=== PATIENT | male | born 1975 | race Caucasian/White ===

== ENCOUNTER → 2017-10-02 | Outpatient (CLI) | payer OTHER | END | disposition home or self-care (01) | LOC: LABWHC1 13:51 | PROVIDERS: ATTEND Psychiatry & Neurology Neurology | DX: G35 Multiple sclerosis (principal) | CPT/HCPCS: 36415; 82565 ==

== ENCOUNTER → 2017-10-03 | Outpatient (CLI) | payer OTHER ==
--- NOTE | 2017-10-03 12:38 | MR ---
EXAMINATION TYPE: MR brain/cspine wo/w DATE OF EXAM: 10/03/2017 COMPARISON: Prior MR brain 04/22/2015 HISTORY: MS TECHNIQUE: Multiplanar, multisequence images of the brain and brainstem, cervical spine is performed without and with IV contrast, utilizing 11.5 mL intravenous Gadavist . FINDINGS: MRI BRAIN: Diffusion weighted images demonstrate no evidence of a recent infarct or other diffusion a bnormality. There is no extra-axial fluid collection. Multiple scattered and confluent hyperintensit ies are again noted within the periventricular, pericallosal, sub and juxtacortical white matter as o n prior exam. There are, however, at least 3-5 new or mildly enlarged lesions present as compared to prior exam. Sagittal image 17 in the pericallosal white matter, axial image 21 has increased in size now measuring 5 to 6 mm in greatest dimension on sagittal image 17. On the right on axial image 21, w marquise matter lesion measures 6.4 mm x 7.6 mm on sagittal image 25, new from prior or increased in cons picuity. Juxtacortical lesion on sagittal image 29, axial image 24 not seen definitively on prior may be increased in conspicuity. The ventricular system and cisternal spaces are stable in size and appearance. The brain volume is s table. Midline structures demonstrate normal morphology. The craniocervical junction appears within normal limits. Post contrast images demonstrate no abnormal enhancement. The dural venous sinuses appear pa tent. The visualized sinuses are clear and the globes are intact. Cervical spine: Posterior disc bulge at C3-4 causes mild anterior mass effect, endplate disc complex extends laterally to cause foraminal encroachment bilaterally. No significant central stenosis. Lateral extension of endplate disc complex at C4-5 causes bilateral foraminal encroachment. Small shahbaz tral posterior disc bulge causes slight anterior mass effect on the thecal sac. No other significant spinal stenosis or foraminal encroachment. Cervical cord signal is maintained. N o abnormal enhancement following contrast administration. Cervical medullary junction is normal. IMPRESSION: Mild increase in plaque burden within the brain. Cervical spine shows mild degenerative d isc change.
== END | disposition home or self-care (01) ==
LOC: RADMRIMAIN 09:41
PROVIDERS: ATTEND Psychiatry & Neurology Neurology
DX: M47.812 Spondylosis without myelopathy or radiculopathy, cervical region (principal); J98.4 Other disorders of lung; G35 Multiple sclerosis
CPT/HCPCS: 70553; 72156; A9581

== ENCOUNTER → 2018-09-20 | Outpatient (CLI) | payer OTHER, MEDICAID ==
--- NOTE | 2018-09-21 18:53 | MR ---
EXAMINATION TYPE: MR brain/cspine wo/w DATE OF EXAM: 09/20/2018 COMPARISON: 10/03/2017 HISTORY: 42-year-old male Relapsing MS, right leg numbness/weakness Technique: Multiplanar, multisequence images of the brain were obtained before and after administrati on of 12 mL intravenous Gadavist gadolinium contrast. Diffusion-weighted imaging is performed. Demye linating disease protocol was utilized with the addition of T2 FLAIR sequence. Subsequent multiplanar, multisequence imaging of the cervical spine before and after IV contrast admi nistration. FINDINGS: BRAIN: T2 Lesions Present : Yes Approximate Number of Lesions: Proximately 50 in the cerebral hemisphere Locations Identified : Pericallosal (with the characteristic appearance of Carty's fingers), Perive ntricular, Juxtacortical, cortical in the right parietal lobe, and also within the right medullary py ramid. Size of Reference Lesion(s): 1. 4 mm right medullary pyramid axial image 8 versus 3 mm, previously. 2 3 mm anterior frontal periventricular white matter axial image 24 versus 5 mm, previously. 3. 1.0 cm left parietal deep white matter axial image 22, unchanged. 4. The vast majority of the lesions are stable. Enhancing Lesion(s) Present: No T1 Hypointense Lesion(s) Present: Yes Change from Prior: Very minimal variation from the prior exam as indicated by reference lesions 1 and 2 above. Small foci of T2 shine through on the DWI sequence. No evidence for acute infarction, hemorrhage, mas s, mass effect, midline shift, herniation, effacement of basal cisterns, or extra-axial fluid collect ion. The ventricles and sulci are age-appropriate. Major intracranial flow voids are intact. Midline structures demonstrate normal morphology. The craniocervical junction is normal. Post contrast images demonstrate no evidence of pathologic enhancement. Dural venous sinuses are pat ent. Mild mucosal thickening within the ethmoid air cells. Globes are intact. CERVICAL SPINE: No craniocervical junction abnormality, predental space widening, or prevertebral soft tissue swellin g. Alignment is maintained. No suspicious bone marrow replacement. Mild intervertebral disc desiccation throughout. Redemonstrated discussed by complex at C3-C4 impress ing on the ventral thecal sac but not causing significant spinal canal stenosis. There is scattered facet and uncovertebral joint arthropathy throughout. At C3-C4, this contributes to [id number] bilateral neural foraminal stenosis. Otherwise, at C4-C5 and below, facet arthropathy contributes to minimal to mild neural foraminal narr owing. There is excessive motion artifact on the sagittal T2 and PD sequence limiting accurate assessment fo r the T2-weighted cord signal abnormality. No definite cord signal lesion is identified. COMBINED IMPRESSION: BRAIN: 1. Moderate scattered burden of T2 bright white matter change is overall stable. One tiny 4 mm lesion in the right medullary pyramid may be slightly larger compared to 3 mm, previously. Another small 3 mm lesion in the right frontal periventricular white matter may be slightly smaller from 5 mm, previo usly. Again, the remaining lesions appear stable. 2. No abnormal enhancing plaques. CERVICAL SPINE: 1. Redemonstrated mild degenerative disc disease and scattered facet arthropathy, more moderate at C3 -C4 with there are mild to moderate bilateral neural foraminal stenoses. 2. Excessive motion artifacts limiting accurate assessment for T2-weighted cord signal abnormality. N o definite demyelinating plaques are seen in the cervical spinal cord.
== END ==
LOC: RADMRIMAIN 08:57
PROVIDERS: ATTEND Psychiatry & Neurology Neurology
DX: R90.89 Other abnormal findings on diagnostic imaging of central nervous system (principal); M48.02 Spinal stenosis, cervical region; M50.31 Other cervical disc degeneration, high cervical region; M46.92 Unspecified inflammatory spondylopathy, cervical region; G35 Multiple sclerosis
CPT/HCPCS: 70553; 72156; A9585

== ENCOUNTER → 2018-09-22 | Outpatient (CLI) | payer OTHER, MEDICAID ==
--- NOTE | 2018-09-22 23:18 | MR ---
EXAMINATION TYPE: MR thoracic spine wo/w con DATE OF EXAM: 09/22/2018 COMPARISON: NONE HISTORY: new leg weakness, mid back pain, MS TECHNIQUE: Multiplanar, multisequence imaging of thoracic spine is performed without and with IV cont rast, patient is injected with 12 cc of gadavist. Demyelinating disease protocol. FINDINGS: Spinal cord shows normal course, caliber, and signal as it courses the thoracic spine. Smitha tebral body heights are satisfactory. Disc space heights are fairly well maintained. No large product safety lead ior disc herniations are seen on sagittal images. Posterior disc herniation C3-C4 level effaces the a nterior thecal sac on sagittal T2 comment sequence is redemonstrated on MRI cervical spine 2 days ear lier. Spleen appears prominent on coronal images correlate clinically. No suspicious enhancement is s een. There is mild to moderate multilevel anterior spurring in the mid to lower thoracic spine with i ncreased thoracic curvature noted centered lower thoracic spine. Bone marrow signal intensity is pres erved. Review of the axial images shows no significant spinal canal stenosis or neural foraminal narrowing a t any thoracic level. Some artifact aggravation lower thoracic spine images is noted. Visualized por tion of the thorax and upper abdomen show no suspicious abnormality. IMPRESSION: Exaggerated thoracic kyphosis lower thoracic spine with mild to moderate anterior spurrin g mid to lower thoracic spine. No suspicious focal disc herniations. Possible splenomegaly, correlate clinically. No demyelinating disease involvement or enhancement in the thoracic spinal cord identifi ed.
== END | disposition home or self-care (01) ==
LOC: RADMRIMAIN 14:52
PROVIDERS: ATTEND Psychiatry & Neurology Neurology
DX: M40.294 Other kyphosis, thoracic region (principal); G35 Multiple sclerosis
CPT/HCPCS: 72157; A9585

== ENCOUNTER → 2018-12-24 | Outpatient (CLI) | payer OTHER, MEDICAID ==
--- NOTE | 2018-12-24 13:40 | US ---
EXAMINATION TYPE: US thyroid st tissue head/neck DATE OF EXAM: 12/24/2018 COMPARISON: NONE CLINICAL HISTORY: R22.0 Localized Mass Swelling. Lump back of head for 3-5 days Scanned within patient's area of concern. Unable to visualize any abnormality by ultrasound at this t bernice IMPRESSION: Ultrasound images saved show no worrisome mass or fluid collection.
[2018-12-24 14:52] LABS: Basophils % (A) 0 %; Eosinophils # (A) 0.1 k/uL (0-0.7); Eosinophils % (A) 3 %; HCT 42.8 % (39.0-53.0); HGB 14.2 gm/dL (13.0-17.5); Lymphocytes # (A) 1.3 k/uL (1.0-4.8); Lymphocytes % (A) 33 %; MCH 28.8 pg (25.0-35.0); MCHC 33.1 g/dL (31.0-37.0); Mean Platelet Volume 6.8; Monocytes # (A) 0.3 k/uL (0-1.0); Monocytes % (A) 7 %; Neutrophils # (A) 2.2 k/uL (1.3-7.7); Neutrophils % (A) 55 %; Platelet Count 197 k/uL (150-450); RBC 4.92 m/uL (4.30-5.90); RDW 13.7 % (11.5-15.5); WBC 4.1 k/uL (3.8-10.6)
[2018-12-24 15:01] LABS: ALT 40 U/L (21-72); AST 32 U/L (17-59); African American GFR (CKD) >90 (>60 ml/min/1.73 sqM); Albumin 4.7 g/dL (3.5-5.0); Alkaline Phosphatase 75 U/L (38-126); Anion Gap 8 mmol/L; Blood Urea Nitrogen 15 mg/dL (9-20); Calcium 9.5 mg/dL (8.4-10.2); Carbon Dioxide 29 mmol/L (22-30); Chloride 107 mmol/L (98-107); Glucose 89 mg/dL (74-99); Potassium 4.4 mmol/L (3.5-5.1); Sodium 144 mmol/L (137-145); Total Bilirubin 0.4 mg/dL (0.2-1.3); Total Protein 7.4 g/dL (6.3-8.2)
== END | disposition home or self-care (01) ==
LOC: RADUSWWP 13:02
PROVIDERS: ATTEND Family Medicine
DX: R22.0 Localized swelling, mass and lump, head (principal); K22.8 Other specified diseases of esophagus; Z88.8 Allergy status to other drugs, medicaments and biological substances
CPT/HCPCS: 76536; 80053; 85025

== ENCOUNTER → 2019-06-17 | Outpatient (CLI) | payer OTHER, MEDICAID ==
[2019-06-17 12:50] LABS: Basophils % (A) 0 %; Eosinophils # (A) 0.2 k/uL (0-0.7); Eosinophils % (A) 3 %; HCT 43.1 % (39.0-53.0); HGB 14.6 gm/dL (13.0-17.5); Lymphocytes # (A) 1.6 k/uL (1.0-4.8); Lymphocytes % (A) 31 %; MCH 29.1 pg (25.0-35.0); MCHC 33.8 g/dL (31.0-37.0); MCV 86.2 fL (80.0-100.0); Mean Platelet Volume 7.5; Monocytes # (A) 0.3 k/uL (0-1.0); Monocytes % (A) 6 %; Neutrophils # (A) 2.9 k/uL (1.3-7.7); Neutrophils % (A) 57 %; Platelet Count 222 k/uL (150-450); RDW 13.4 % (11.5-15.5); WBC 5.1 k/uL (3.8-10.6)
[2019-06-17 19:06] LABS: African American GFR (CKD) 104.9 (60.0-200.0); Anion Gap 8.9 mmol/L (4.00-12.00); Calcium 9.5 mg/dL (8.7-10.3); Carbon Dioxide 26.1 mmol/L (21.6-31.8); Chol/HDL Ratio 7.69; Non-African American GFR(CKD) 90.5 (60.0-200.0); Potassium 4.2 mmol/L (3.5-5.5)
== END | disposition home or self-care (01) ==
LOC: LABWHC1 12:21
PROVIDERS: ATTEND Family Medicine
DX: Z00.00 Encounter for general adult medical examination without abnormal findings (principal); I10 Essential (primary) hypertension; G35 Multiple sclerosis
CPT/HCPCS: 36415; 80048; 80061; 83721; 84443; 84450; 84460; 85025

== ENCOUNTER 2020-09-16 01:32 | Emergency (ER) | payer OTHER ==
[2020-09-16 02:04] VITALS: TEMP 97.6
--- NOTE | 2020-09-16 04:24 | ED ---
Anxiety HPI - General Chief Complaint: Anxiety Stated Complaint: Panic Attack Time Seen by Provider: 09/16/20 03:02 Source: patient Mode of arrival: ambulatory - History of Present Illness Initial Comments: This patient is a 44-year-old man presenting because he is having a lot of anxiety. Things started tonight after he was trying to have bowel movement and was not able to. He states that he was having some hard stool. Patient also felt like he was not able to urinate. He states that now he is having a hard time calming down. There is some abdominal pressure but he is denying pain. No chest pain, no dyspnea. MD Complaint: anxiety -: hour(s) Symptoms: other Place: home Severity: moderate Quality: constant Improves With: nothing Worsens With: nothing Associated symptoms: other (See HPI) - Related Data Home Medications: Home Medications Medication Instructions Recorded Confirmed Fish Oil/Dha/Epa [Fish Oil 1,200 1 each PO DAILY 11/17/13 04/21/15 mg Fish Oil] Multivitamins, Thera [Multivitamin 1 each PO DAILY 11/17/13 04/21/15 (formulary)] Sertraline [Zoloft] 100 mg PO DAILY 11/17/13 04/21/15 diphenhydrAMINE [Benadryl] 25 mg PO DAILY PRN 11/17/13 04/21/15 lisinopriL 40 mg PO DAILY 11/17/13 04/21/15 Dm/PE/Acetaminophen/Doxylamine 1 each PO QID PRN 04/21/15 04/21/15 [Izabella-Fithian Plus Day-Night Cp] Meclizine [Antivert] 25 mg PO BID 04/21/15 04/21/15 Sambucol 1 tab PO BID PRN 04/21/15 04/21/15 Previous Rx's Medication Instructions Recorded Butalb/APAP/Caff 50-325-40Mg 1 each PO Q4HR PRN #180 tab 04/26/15 [Fioricet 50-325-40] Omeprazole [PriLOSEC] 20 mg PO AC-BID #60 capsule. 04/26/15 Ondansetron [Zofran] 4 mg PO Q12HR PRN #60 tab 04/26/15 Sildenafil Citrate [Viagra] 100 mg PO ONCE #12 tab 04/26/15 predniSONE 10 mg PO DIRECTED #147 tab 04/26/15 Ibuprofen [Motrin] 600 mg PO Q6HR PRN #20 tab 03/08/16 traMADol HCl [Ultram] 50 mg PO Q6H PRN #20 tab 03/08/16 Allergies/Adverse Reactions: Allergies Allergy/AdvReac Type Severity Reaction Status Date / Time benzocaine Allergy Unknown Swelling Verified 09/16/20 01:59 [From Cepacol Sore Throat] cetylpyridinium chloride Allergy Unknown Swelling Verified 09/16/20 01:59 [From Cepacol Sore Throat] menthol Allergy Unknown Swelling Verified 09/16/20 01:59 [From Cepacol Sore Throat] Review of Systems ROS Statement: Those systems with pertinent positive or pertinent negative responses have been documented in the HPI. ROS Other: All systems not noted in ROS Statement are negative. Constitutional: Denies: fever, chills, weakness Eyes: Denies: vision change Respiratory: Denies: cough, dyspnea Cardiovascular: Denies: chest pain, palpitations Gastrointestinal: Reports: constipation. Denies: abdominal pain, nausea, vomiting, diarrhea Genitourinary: Reports: as per HPI, urgency. Denies: dysuria, hematuria, testicular pain, testicular mass Musculoskeletal: Denies: back pain Skin: Denies: rash Neurological: Denies: headache, weakness, numbness Past Medical History Past Medical History: Hyperlipidemia, Hypertension, Neurologic Disorder Additional Past Medical History / Comment(s): MULTIPLE SCLEROSIS, OCULAR NEURITIS, History of Any Multi-Drug Resistant Organisms: None Reported Past Surgical History: No Surgical Hx Reported Additional Past Surgical History / Comment(s): ANESTHESIA WITH TEETH EXTRACTION, hernia repair 2012, Past Anesthesia/Blood Transfusion Reactions: No Reported Reaction, Motion Sickness Past Psychological History: Anxiety, Depression Smoking Status: Current some day smoker Past Alcohol Use History: Occasional Past Drug Use History: Marijuana - Past Family History Mother Family Medical History: Diabetes Mellitus, Hypertension Father Family Medical History: Hyperlipidemia Sister(s) Additional Family Medical History / Comment(s): MS General Exam Limitations: no limitations General appearance: alert, in no apparent distress Head exam: Present: atraumatic, normocephalic Eye exam: Present: normal appearance. Absent: scleral icterus, conjunctival injection Respiratory exam: Present: normal lung sounds bilaterally. Absent: respiratory distress, wheezes, rales, rhonchi, stridor Cardiovascular Exam: Present: regular rate, normal rhythm, normal heart sounds. Absent: systolic murmur, diastolic murmur, rubs, gallop GI/Abdominal exam: Present: soft, tenderness (Suprapubic), guarding (Suprapu bic). Absent: distended, rebound, rigid, mass, pulsatile mass, hernia Extremities exam: Present: normal inspection, normal capillary refill. Absent: pedal edema, calf tenderness Back exam: Present: normal inspection. Absent: CVA tenderness (R), CVA tenderness (L) Neurological exam: Present: alert Skin exam: Present: warm, dry, intact, normal color. Absent: rash Course Vital Signs 09/16/20 09/16/20 09/16/20 02:00 03:19 05:21 Temperature 97.6 F Pulse Rate 125 H 116 H 79 Respiratory 18 26 H 19 Rate Blood Pressure 141/80 161/110 149/93 O2 Sat by Pulse 98 98 98 Oximetry Medical Decision Making - Medical Decision Making Patient's 44-year-old man who had been having constipation and then hard time passing urine. Also feeling very anxious. On exam there is some guarding over the suprapubic area and bladder scan does show large amount urine. The patient's symptoms resolved after straight cath to drain his bladder. At this point it appears that patient's hard stool probably pressing on bladder neck. Discussed that should he have further episodes of this or any difficulty initiating voiding we'll need to see him again. Also discussed urology follow- up should there be issues with bladder. No history of trauma or back pain. Discussed appropriate further care and follow-up, as well as return parameters Disposition Clinical Impression: Urinary retention Disposition: HOME SELF-CARE Instructions (If sedation given, give patient instructions): Urinary Retention in Men (ED) Is patient prescribed a controlled substance at d/c from ED?: No Referrals: Konrad Clifton Jr, [Primary Care Provider] - 1-2 days
[2020-09-16 05:22] VITALS: BP 149/93; PULSE 79; RESP 19
== END 2020-09-16 05:32 | disposition home or self-care (01) ==
LOC: EC 01:32
DX: R33.9 Retention of urine, unspecified (principal); I10 Essential (primary) hypertension; E78.5 Hyperlipidemia, unspecified; F32.9 Major depressive disorder, single episode, unspecified; F41.9 Anxiety disorder, unspecified; F17.200 Nicotine dependence, unspecified, uncomplicated
CPT/HCPCS: 99283

== ENCOUNTER → 2020-11-02 | Outpatient (CLI) | payer OTHER ==
--- NOTE | 2020-11-02 16:24 | XR ---
EXAM TYPE: LUMBAR SPINE X RAY SERIES COMPARISON: NONE HISTORY: Pain TECHNIQUE: 4 views are submitted. FINDINGS: Alignment is anatomic. The pedicles are intact. The transverse processes are intact. There is grad e 1 anterolisthesis L5 on S1 with severe degenerative disc disease and facet arthropathy. Moderate de generative disc disease L4-L5. There is diffuse osteopenia. Chronic appearing anterior wedge deformit y thoracolumbar junction with multilevel mild to moderate degenerative change and facet arthropathy. IMPRESSION: 1. Multilevel degenerative disc disease most marked at L5-S1 with grade 1 anterolisthesis. 2. Multilevel facet arthropathy. 3. Chronic appearing wedge deformities at the thoracolumbar junction.
--- NOTE | 2020-11-02 16:26 | XR ---
EXAMINATION TYPE: XR thoracic spine complete DATE OF EXAM: 11/02/2020 COMPARISON: 05/17/2017 HISTORY: Pain TECHNIQUE: 3 views submitted FINDINGS: multilevel degenerative disc disease with severe changes involving the lower thoracic spine . There are multiple wedge deformity seen which are similar in appearance to the prior exam suggestiv e of chronic compression IMPRESSION: Multilevel degenerative disc disease with chronic appearing compression deformities in th e lower thoracic spine. Consider MRI follow-up.
== END | disposition home or self-care (01) ==
LOC: RADXRMAIN 15:39
PROVIDERS: ATTEND Emergency Medicine
DX: M51.37 Other intervertebral disc degeneration, lumbosacral region (principal); M47.16 Other spondylosis with myelopathy, lumbar region; M47.816 Spondylosis without myelopathy or radiculopathy, lumbar region; M51.34 Other intervertebral disc degeneration, thoracic region; M43.8X6 Other specified deforming dorsopathies, lumbar region; M43.8X4 Other specified deforming dorsopathies, thoracic region
CPT/HCPCS: 72072; 72100

== ENCOUNTER 2022-02-19 05:39 | Emergency (ER) | payer OTHER ==
[2022-02-19] MEDS ORDERED: SODIUM CHLORIDE 0.9% 1,000 ML IV STA (05:40)
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
[2022-02-19 06:06] LABS: Basophils % (A) 0 %; Eosinophils # (A) 0.2 k/uL (0-0.7); Eosinophils % (A) 6 %; HCT 38.3 % (39.0-53.0); Lymphocytes # (A) 0.6 k/uL (1.0-4.8); Lymphocytes % (A) 16 %; MCH 30.7 pg (25.0-35.0); MCV 90.4 fL (80.0-100.0); Mean Platelet Volume 7.7; Monocytes # (A) 0.3 k/uL (0-1.0); Monocytes % (A) 9 %; Neutrophils # (A) 2.4 k/uL (1.3-7.7); Neutrophils % (A) 66 %; Platelet Count 173 k/uL (150-450); RBC 4.24 m/uL (4.30-5.90); RDW 14.1 % (11.5-15.5); WBC 3.7 k/uL (3.8-10.6)
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
[2022-02-19 06:17] LABS: Partial Thromboplastin Time 23.6 sec (22.0-30.0); Prothrombin Time 10.5 sec (9.0-12.0)
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
[2022-02-19 06:33] LABS: ALT 30 U/L (4-49); AST 28 U/L (17-59); African American GFR (CKD) >90 (>60 ml/min/1.73 sqM); Albumin 3.8 g/dL (3.5-5.0); Alcohol <10 mg/dL; Alkaline Phosphatase 75 U/L (38-126); Anion Gap 8 mmol/L; Blood Urea Nitrogen 15 mg/dL (9-20); Calcium 8.6 mg/dL (8.4-10.2); Carbon Dioxide 23 mmol/L (22-30); Chloride 111 mmol/L (98-107); Glucose 102 mg/dL (74-99); Non-African American GFR(CKD) >90 (>60 ml/min/1.73 sqM); Potassium 3.5 mmol/L (3.5-5.1); Sodium 142 mmol/L (137-145); Total Bilirubin 0.4 mg/dL (0.2-1.3)
--- NOTE | 2022-02-19 06:33 | XR ---
EXAMINATION TYPE: XR knee limited RT DATE OF EXAM: 02/19/2022 COMPARISON: NONE HISTORY: Pain TECHNIQUE: 2 view FINDINGS: There is no sign of fracture nor dislocation. Joint spaces are normal. No sign of joint eff usion. IMPRESSION: Normal right knee exam
--- NOTE | 2022-02-19 06:34 | XR ---
EXAMINATION TYPE: XR ankle limited RT DATE OF EXAM: 02/19/2022 COMPARISON: NONE HISTORY: Pain TECHNIQUE: 2 views FINDINGS: Ankle mortise is anatomic. No fracture nor dislocation. Joint spaces are normal. IMPRESSION: Negative right ankle exam.
--- NOTE | 2022-02-19 06:35 | XR ---
EXAMINATION TYPE: XR pelvis AP view DATE OF EXAM: 02/19/2022 COMPARISON: NONE HISTORY: Pain TECHNIQUE: Single view FINDINGS: The pelvic ring is intact. Proximal femurs and hip joints are intact. Sacroiliac joints are intact IMPRESSION: Negative exam. No fracture.
--- NOTE | 2022-02-19 06:36 | XR ---
EXAMINATION TYPE: XR chest 1V portable DATE OF EXAM: 02/19/2022 COMPARISON: 03/08/2016 HISTORY: Chest pain TECHNIQUE: FINDINGS: Heart appears enlarged. No heart failure seen. Lungs are clear of infiltrate. No pleural ef fusion. Bony thorax appears intact. IMPRESSION: Mild cardiomegaly. No acute lung disease. No adverse change.
[2022-02-19] MEDS ORDERED: traMADol 50 MG STARTER PACK 3 TAB BTL PO STA (06:57)
== END 2022-02-19 07:09 | disposition home or self-care (01) ==
LOC: EC 05:39
DX: S80.01XA Contusion of right knee, initial encounter (principal); E78.5 Hyperlipidemia, unspecified; I10 Essential (primary) hypertension; F17.200 Nicotine dependence, unspecified, uncomplicated; Z88.8 Allergy status to other drugs, medicaments and biological substances; Z88.6 Allergy status to analgesic agent; Z88.3 Allergy status to other anti-infective agents; V89.2XXA Person injured in unspecified motor-vehicle accident, traffic, initial encounter
CPT/HCPCS: 93005; 86900; 86901; 80053; 83605; 84484; 85025; 85610; 85730; 86850; 80320; 72170; 73560; 73600; 71045; 72125; 70450; 71260; 74177; 99284; 96360; Q9967; 36415

== ENCOUNTER → 2023-03-04 | Outpatient (CLI) | payer OTHER ==
[2023-03-04 21:29] LABS: BUN/Creat Ratio 14.44 Ratio (12.00-20.00); Chloride 109 mmol/L (96-109); Glucose 103 mg/dL (70-110); Potassium 3.7 mmol/L (3.5-5.5); Sodium 142 mmol/L (135-145)
[2023-03-04 21:30] LABS: ALT 24 U/L (10-49); AST 21 U/L (14-35); Albumin 4.3 d/dL (3.8-4.9); Albumin/Globulin Ratio 2.15 Ratio (1.60-3.17); Alkaline Phosphatase 91 U/L (41-126); Calcium 9.2 mg/dL (8.7-10.3); Carbon Dioxide 23.9 mmol/L (21.6-31.8); Total Bilirubin <0.2 mg/dL (0.3-1.2); Total Protein 6.3 d/dL (6.2-8.2)
[2023-03-04 22:29] LABS: Basophils # (A) 0.01 X 10*3/uL (0.00-0.10); Basophils % (A) 0.2 %; Eosinophils # (A) 0.31 X 10*3/uL (0.04-0.35); Eosinophils % (A) 7.5 %; HCT 38.7 % (39.6-50.0); HGB 12.7 d/dL (13.0-17.0); Lymphocytes # (A) 0.92 X 10*3/uL (0.90-5.00); Lymphocytes % (A) 22.4 %; MCH 29.5 pg (27.0-32.0); MCHC 32.8 d/dL (32.0-37.0); Mean Platelet Volume 10.6 FL (9.5-12.2); Monocytes # (A) 0.44 X 10*3/uL (0.20-1.00); Monocytes % (A) 10.7 %; NRBC Per 100 WBC 0 X 10*3/uL (0.00-0.01); Neutrophils # (A) 2.42 X 10*3/uL (1.80-7.70); Platelet Count 186 X 10*3/uL (140-440); RDW 13.3 % (11.5-14.5); WBC 4.11 X 10*3/uL (4.50-10.00)
== END | disposition home or self-care (01) ==
LOC: LABWHC1 11:21
PROVIDERS: ATTEND Internal Medicine
DX: Z22.7 Latent tuberculosis (principal)
CPT/HCPCS: 36415; 80053; 85025

== ENCOUNTER → 2023-11-05 | Outpatient (CLI) | payer OTHER ==
[2023-11-05 14:18] VITALS: BP 135/87; PULSE 72; RESP 16; TEMP 98
--- NOTE | 2023-11-05 15:00 | P.SLEEP ---
History of Present Illness H&P Date: 11/05/23 This is a 48-year-old who was referred to me for issues related to sleep quality and insomnia. 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 He states that he is functional and is able to complete his job without having any difficulties with his level of alertness. He has multiple medical problems and comorbidities. Is known to have multiple sclerosis that was diagnosed back in 2014 and the patient has history of optic neuritis. He has been treated so the neurologist in [facility]. At the same time, the patient has chronic allergic rhinitis and migraines along with history of depression, hypertension hyperlipidemia and acid reflux. He suffers from chronic fatigue. His MS has been adequately treated for now the patient seems to be in remission. He complains of chronic urinary retention and numbness and weakness in his left lower extremity, a manifestation of multiple sclerosis. He has had issues with vision in the past related to optic neuritis. In regards to his sleep, the patient was having issues with insomnia for many years. The patient reports that he gets very congested which prevents him from initiating sleep. He has chronic allergies and is currently utilizing a combination of treatment which has improved his nasal patency and ability to initiate sleep. He is currently taking Claritin, Benadryl, Mucus Relief [id number]-[id number] and Astelin. He is also taking melatonin and THC Gummies. With this current combination, he is able to initiate sleep within 15 to 20 minutes. He goes to bed between 8 and 9 AM and he wakes up 4 AM in the morning to an alarm. On the weekends, he goes to bed between 9 and 11 PM and he wakes up between 6 and 9 AM in the morning. He feels refreshed during the day. No excessive hypersomnia or sleepiness. Wakes up few times in the middle of the night specially when he drinks water and excess and his nocturnal arousals are mainly to urinate. Does not take any naps during the day. No sleep paralysis. No hallucinations. No cataplexy. No nighttime headaches or heartburn over the patient has history of migraines as a acid reflux and both of those conditions are treated. No recent weight gain and the patient's weight has been essentially stable. In fact the patient has lost around 30 pounds over the past 1 year. No angina. No palpitations. He is known to have hypertension. No congestion heart failure. No cardiac arrhythmias. No atrial fibrillation. No history of any motor vehicle accidents because of feeling drowsy or sleepy. His [place] score is currently at 5. He has limited snoring. No witnessed apneas. Does not smoke. Does not drink alcohol and no substance abuse. No personal or family history of obstructive sleep apnea. He has chronic fatigue and currently is on modafinil 200 mg p.o. twice a day. No side effects. Review of Systems Constitutional: Reports fatigue, Reports malaise, Reports weakness, Reports weight loss Eyes: bilateral blurred vision, bilateral decreased vision, bilateral loss of peripheral vision, denies as per HPI, denies bulging eye, denies diplopia, denies discharge, denies dry eye, denies irritation, denies itching, denies pain, denies photophobia, denies loss of vision, denies tunnel vision/blind spots Ears: deny: decreased hearing, ear discharge, earache, tinnitus Ears, nose, mouth and throat: Reports as per HPI Breasts: absent: as per HPI, gynecomastia Cardiovascular: Reports as per HPI Respiratory: Reports as per HPI Gastrointestinal: Reports as per HPI Genitourinary: Reports urinary frequency, Reports urinary retention Musculoskeletal: Reports as per HPI, Reports arm numbness/tingling, Reports gait dysfunction Musculoskeletal: absent: ankle pain, ankle stiffness, ankle swelling, as per HPI, elbow pain, elbow stiffness, elbow swelling, foot pain, foot stiffness, foot swelling, hand pain, hand stiffness, hand swelling, hip pain, hip stiffness, hip swelling, knee pain, knee stiffness, knee swelling, shoulder pain, shoulder stiffness, shoulder swelling, wrist pain, wrist stiffness, wrist swelling Integumentary: Reports as per HPI Neurological: Reports gait dysfunction, Reports headaches, Reports numbness, Reports weakness Psychiatric: Reports as per HPI Endocrine: Reports as per HPI, Reports fatigue Hematologic/Lymphatic: Reports as per HPI Allergic/Immunologic: Reports as per HPI Past Medical History Past Medical History: GERD/Reflux, Hyperlipidemia, Hypertension, Neurologic Disorder Additional Past Medical History / Comment(s): MULTIPLE SCLEROSIS, OCULAR NEURITIS, sinus headaches, restless legs History of Any Multi-Drug Resistant Organisms: None Reported Past Surgical History: No Surgical Hx Reported Additional Past Surgical History / Comment(s): ANESTHESIA WITH TEETH EXTRACTION, hernia repair 2012, Past Anesthesia/Blood Transfusion Reactions: No Reported Reaction, Motion Sickness Past Psychological History: Anxiety, Depression Smoking Status: Current some day smoker Past Alcohol Use History: Occasional Past Drug Use History: Marijuana Additional Drug Use History / Comment(s): MARIJUANA USE IN THE PAST, cigar every once and a while, social drinker - Past Family History Mother Family Medical History: Diabetes Mellitus, Hypertension Father Family Medical History: Cancer, Hyperlipidemia, Hypertension, Rheumatoid Arthritis (RA), Thyroid Disorder Additional Family Medical History / Comment(s): sinus headaches, snoring Sister(s) Additional Family Medical History / Comment(s): MS Medications and Allergies Home Medications Medication Instructions Recorded Confirmed Type Fish Oil/Dha/Epa [Fish Oil 1,200 1 each PO DAILY 11/17/13 04/21/15 History mg Fish Oil] Multivitamins, Thera [Multivitamin 1 each PO DAILY 11/17/13 11/05/23 History (formulary)] Sertraline [Zoloft] 100 mg PO DAILY 11/17/13 04/21/15 History diphenhydrAMINE [Benadryl] 25 mg PO DAILY PRN 11/17/13 04/21/15 History lisinopriL 40 mg PO DAILY 11/17/13 11/05/23 History Dm/PE/Acetaminophen/Doxylamine 1 each PO QID PRN 04/21/15 04/21/15 History [Izabella-Burkett Plus Day-Night Cp] Meclizine [Antivert] 25 mg PO BID 04/21/15 04/21/15 History Sambucol 1 tab PO BID PRN 04/21/15 04/21/15 History Butalb/APAP/Caff 50-325-40Mg 1 each PO Q4HR PRN #180 tab 04/26/15 Rx [Fioricet 50-325-40] Omeprazole [PriLOSEC] 20 mg PO AC-BID #60 ishmael. 04/26/15 11/05/23 Rx Ondansetron [Zofran] 4 mg PO Q12HR PRN #60 tab 04/26/15 Rx Sildenafil Citrate [Viagra] 100 mg PO ONCE #12 tab 04/26/15 11/05/23 Rx predniSONE 10 mg PO DIRECTED #147 tab 04/26/15 Rx Ibuprofen [Motrin] 600 mg PO Q6HR PRN #20 tab 03/08/16 Rx traMADol HCl [Ultram] 50 mg PO Q6H PRN #20 tab 03/08/16 Rx Atorvastatin [Lipitor] 80 mg PO DAILY 11/05/23 11/05/23 History Tamsulosin HCl [Flomax] 0.4 mg PO DAILY 11/05/23 11/05/23 History Topiramate [Topamax] 50 mg PO DAILY 11/05/23 11/05/23 History buPROPion HCL [Wellbutrin SR] 200 mg PO BID 11/05/23 11/05/23 History modafiniL [Provigil] 200 mg PO DAILY 11/05/23 11/05/23 History tadalafiL [Cialis] 20 mg PO DIRECTED PRN 11/05/23 11/05/23 History Allergies Allergy/AdvReac Type Severity Reaction Status Date / Time benzocaine Allergy Unknown Swelling Verified 09/16/20 01:59 [From Cepacol Sore Throat] cetylpyridinium chloride Allergy Unknown Swelling Verified 09/16/20 01:59 [From Cepacol Sore Throat] menthol Allergy Unknown Swelling Verified 09/16/20 01:59 [From Cepacol Sore Throat] Physical Exam Vitals: Vital Signs Temp Pulse Resp BP Pulse Ox 11/05/23 14:17 98.0 F 72 16 135/87 97 Intake and Output 11/04/23 11/05/23 11/05/23 22:59 06:59 14:59 Other: Weight 102.058 kg The patient appeared well nourished and normally developed. Vital signs as documented. Head exam is unremarkable. No scleral icterus or corneal arcus noted. Neck is without jugular venous distension, thyromegaly, or carotid bruits. The patient is a Mallampati class I with no crowding of the posterior pharynx. Carotid upstrokes are brisk bilaterally. Lungs are clear to auscultation and percussion. Cardiac exam reveals the PMI to be normally sized and situated. Rhythm is regular. First and second heart sounds normal. No murmurs, rubs or gallops. Abdominal exam reveals normal bowel sounds, no masses, no organomegaly and no aortic enlargement. Extremities are nonedematous and both femoral and pedal pulses are normal. Examination of the skin revealed no evidence of significant rashes, suspicious appearing nevi or other concerning lesions. Neurologically, the patient is awake and alert and the patient does not have any focal neurological deficit. Cranial nerves are essentially intact. Assessment and Plan Plan: Chronic insomnia,, with insomnia related to his previous comorbidities listed above. Of significance is his sinus allergies and excessive nasal congestion in addition to history of multiple sclerosis/. Noted the patient urinary retention has utilized a combination of antihistamines and nasal steroids and ferf-vsz-esjtjng remedies to improve his insomnia. At same time, the patient has been adequate treatment for his multiple sclerosis and depression. Furthermore, he is taking a combination of THC gummy bears and melatonin. For now, he is able to initiated with good 5 to 6 hours of sleep and is functional during the day without any significant hypersomnia or sleepiness. His current [place] score is 5. Multiple sclerosis diagnosed back in 2014 complicated by optic neuritis, chronic numbness and weakness in lower extremities specially on the left and urinary retention Migraines Chronic allergic rhinitis maintained on a combination of antihistamines and nasal steroids and ubnk-rvr-hcxkaor medication. Latent TB treated by prophylaxis/chemoprophylaxis History of depression, currently on Wellbutrin Chronic fatigue maintained on modafinil 200 mg p.o. twice a day Hypertension Hyperlipidemia Erectile dysfunction Plan The patient does have chronic insomnia which seems to be under fair control for now. He is able to generate adequate number of hours of sleep without having any major daytime sleepiness or impairment with his daytime functionality. I think is reasonable to do a screening polysomnography to evaluate the patient's ability to initiate and maintain sleep, evaluate the patient sleep architecture and rule out any underlying sleep breathing disorder or periodic limb movement activity. Will look for any other pathology and make adjustments to improve the patient's sleep quality. Meanwhile, we will continue the melatonin and THC Gummies. Will continue treating his allergic rhinitis, recommend avoiding Benadryl and utilizing second-generation antihistamines such as Claritin in combination with nasal steroids and ofyp-qvs-rnawihn medications. Avoid Afrin. Continue treating comorbidities. Continue Wellbutrin. Continue Flomax. Cut down the fluid intake at least 3 hours prior to going to bed. Maintain good sleep hygiene measures. Will make further recommendations based on the results of the polysomnography. Will continue to follow. Sleep Note - Sleep Data ESS Total: 5 - Sleep Note Sleep Note: Temperature: 98.0 F Pulse Rate: 72 Respiratory Rate: 16 Blood Pressure: 135/87 SpO2: 97 Height: 5 ft 9.2 in Weight: 102.058 kg BMI: Neck Circumference: 16
== END ==
LOC: 3 N SLEEP 13:17
PROVIDERS: ATTEND Internal Medicine Critical Care Medicine
DX: F51.04 Psychophysiologic insomnia (principal); R09.81 Nasal congestion; G35 Multiple sclerosis; R33.9 Retention of urine, unspecified; F32.A Depression, unspecified; G47.10 Hypersomnia, unspecified; G43.909 Migraine, unspecified, not intractable, without status migrainosus; M79.2 Neuralgia and neuritis, unspecified; J30.9 Allergic rhinitis, unspecified; I10 Essential (primary) hypertension; R53.82 Chronic fatigue, unspecified; E78.5 Hyperlipidemia, unspecified; N52.9 Male erectile dysfunction, unspecified; A15.9 Respiratory tuberculosis unspecified; F17.200 Nicotine dependence, unspecified, uncomplicated; Z88.8 Allergy status to other drugs, medicaments and biological substances; Z91.09 Other allergy status, other than to drugs and biological substances; Z79.899 Other long term (current) drug therapy
CPT/HCPCS: 99211

== ENCOUNTER 2023-12-02 19:56 | Outpatient (CLI) | payer OTHER ==
--- NOTE | 2023-12-15 22:18 | P.PCN ---
Date of Procedure: 12/02/23 Operative Findings: Polysomnography report Date of service is 12/02/2023 Pertinent history This is a 48-year-old who was referred to me for issues related to sleep quality and insomnia. 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 He states that he is functional and is able to complete his job without having any difficulties with his level of alertness. He has multiple medical problems and comorbidities. Is known to have multiple sclerosis that was diagnosed back in 2014 and the patient has history of optic neuritis. He has been treated so the neurologist in [facility]. At the same time, the patient has chronic allergic rhinitis and migraines along with history of depression, hypertension hyperlipidemia and acid reflux. He suffers from chronic fatigue. His MS has been adequately treated for now the patient seems to be in remission. He complains of chronic urinary retention and numbness and weakness in his left lower extremity, a manifestation of multiple sclerosis. He has had issues with vision in the past related to optic neuritis. In regards to his sleep, the patient was having issues with insomnia for many years. The patient reports that he gets very congested which prevents him from initiating sleep. He has chronic allergies and is currently utilizing a combination of treatment which has improved his nasal patency and ability to initiate sleep. He is currently taking Claritin, Benadryl, Mucus Relief mqkv-osy-bycrhcz and Astelin. He is also taking melatonin and THC Gummies. With this current combination, he is able to initiate sleep within 15 to 20 minutes. He goes to bed between 8 and 9 AM and he wakes up 4 AM in the morning to an alarm. On the weekends, he goes to bed between 9 and 11 PM and he wakes up between 6 and 9 AM in the morning. He feels refreshed during the day. No excessive hypersomnia or sleepiness. Wakes up few times in the middle of the night specially when he drinks water and excess and his nocturnal arousals are mainly to urinate. Does not take any naps during the day. No sleep paralysis. No hallucinations. No cataplexy. No nighttime headaches or heartburn over the patient has history of migraines as a acid reflux and both of those conditions are treated. No recent weight gain and the patient's weight has been essentially stable. In fact the patient has lost around 30 pounds over the past 1 year. No angina. No palpitations. He is known to have hypertension. No congestion heart failure. No cardiac arrhythmias. No atrial fibrillation. No history of any motor vehicle accidents because of feeling drowsy or sleepy. His [place] score is currently at 5. He has limited snoring. No witnessed apneas. Does not smoke. Does not drink alcohol and no substance abuse. No personal or family history of obstructive sleep apnea. He has chronic fatigue and currently is on modafinil 200 mg p.o. twice a day. No side effects. Physical findings The weight is 225 pounds with a body mass index of 33 Technical description The patient was studied using a standard complex polysomnography protocol that included recording of the 2 EKG, Central, occipital and frontal EEG, right and left outer canthus EOG, submental EMG, right and left anterior tibialis EMG, respiratory airflow by thermocouple and or pressure/flow transducer, respiratory efforts by abdominal and thoracic PVDF belts, oxygen saturation by cable oximetry. Position by observation synchronized the PSG. Equipment used: [email or web address]. Sleep characteristics The total recording duration was 367.0 minutes. The total sleep time was 288.0 minutes. The overall sleep efficiency was calculated to be 78.5%. The latency to sleep onset was 33.5 minutes. The sleep architecture was catheterized by 7.6% stage I, 79.0% stage II, 0% stage III, 14.6% REM sleep. The total arousal index was 4.4. Latency to REM sleep was 223.5 minutes. The wake after sleep onset time was 45.5 minutes Results Respiratory analysis showed a total of 26 obstructive events of which 0 were obstructive apneas, 0 were mixed apneas and 26 were obstructive hypopneas with a resulting AHI of 4.8. No central apneas were noted. The average pulse ox while awake was 96%. Minimum pulse ox was 79%. The patient was able to maintain saturation above 90% throughout the sleep study. The patient's pulse ox dropped below 89% for a total of 1 minute. No major desaturations were encountered during the sleep study. Sleep continuity summary The patient had a total of 21 arousals with an index of 4.4, no significant arousals related to respiratory events Periodic limb movements No significant periodic movement activity was noted Cardiac summary Average heart rate was 47 with a minimum heart of 45 and a maximum heart rate of 51 Assessment Primary snoring, no significant evidence of obstructive sleep apnea, AHI of 4.8 Overall sleep efficiency was 78%, slightly prolonged sleep onset No significant arousals or periodic movement activity No significant nocturnal oxygen saturations Chronic insomnia, related to his previous comorbidities listed above. Of significance is his sinus allergies and excessive nasal congestion in addition to history of multiple sclerosis/. Noted the patient urinary retention has utilized a combination of antihistamines and nasal steroids and tvjs-poq-ldidnlh remedies to improve his insomnia. At same time, the patient has been adequate treatment for his multiple sclerosis and depression. Furthermore, he is taking a combination of THC gummy bears and melatonin. For now, he is functional during the day without any significant hypersomnia or sleepiness. His current D[place] score is 5. Multiple sclerosis diagnosed back in 2014 complicated by optic neuritis, chronic numbness and weakness in lower extremities specially on the left and urinary retention Migraines Chronic allergic rhinitis maintained on a combination of antihistamines and nasal steroids and cujd-lao-cvbiyta medication. Latent TB treated by prophylaxis/chemoprophylaxis History of depression, currently on Wellbutrin Chronic fatigue maintained on modafinil 200 mg p.o. twice a day Hypertension Hyperlipidemia Erectile dysfunction Plan The patient does have chronic insomnia which seems to be under fair control for now. He is able to generate adequate number of hours of sleep without having any major daytime sleepiness or impairment with his daytime functionality. No evidence of any sleep breathing disorder or periodic limb movement activity. He will continue the melatonin and THC Gummies. Will continue treating his allergic rhinitis, recommend avoiding Benadryl and utilizing second-generation antihistamines such as Claritin in combination with nasal steroids and bxnl-cqe-thvbxdv medications. Avoid Afrin. Continue treating comorbidities. Continue Wellbutrin. Continue Flomax. Cut down the fluid intake at least 3 hours prior to going to bed. Maintain good sleep hygiene measures. Continue modafinil.
== END 2023-12-03 05:20 | disposition home or self-care (01) ==
LOC: 3 N SLEEP 19:56
PROVIDERS: ATTEND Internal Medicine Critical Care Medicine
DX: F51.04 Psychophysiologic insomnia (principal); R06.83 Snoring; R09.81 Nasal congestion; R33.9 Retention of urine, unspecified; G35 Multiple sclerosis; F32.A Depression, unspecified; G43.909 Migraine, unspecified, not intractable, without status migrainosus; R53.82 Chronic fatigue, unspecified; I10 Essential (primary) hypertension; E78.5 Hyperlipidemia, unspecified; N52.9 Male erectile dysfunction, unspecified; K21.9 Gastro-esophageal reflux disease without esophagitis; J30.9 Allergic rhinitis, unspecified; F17.200 Nicotine dependence, unspecified, uncomplicated; H46.9 Unspecified optic neuritis; Z88.8 Allergy status to other drugs, medicaments and biological substances; Z79.899 Other long term (current) drug therapy
CPT/HCPCS: 95810